=== PATIENT | female | born 1950 ===

== ENCOUNTER 2019-01-06 12:33 | Outpatient (REF) | payer OTHER, SELFPAY ==
[2019-01-06 19:32] LABS: HCT 40.6 % (36.0-46.0); HGB 13.9 g/dL (12.0-15.5); Mean Corp. HGB Concentration 34.2 g/dL (32.0-36.0); Mean Corpuscular Hemoglobin 34.7 pg (27.0-33.0); Mean Corpuscular Volume 101.2 fL (80-95); Mean Platelet Volume 10.9 fL (8.0-11.0); Platelet Count 206 x1000/uL (130-400); RBC 4.01 m/cumm (4.00-5.20); White Blood Cell Count 6.85 k/cumm (4.4-10.8)
[2019-01-06 20:02] LABS: ALT 22 U/L (12-78); LDL CHOLESTEROL 106 mg/dL (<100); TSH 1.55 uIU/mL (0.358-3.74)
== END 2019-01-06 12:53 ==
LOC: NCHCN 12:33
PROVIDERS: PCP Internal Medicine; Visit Provider Internal Medicine
DX: E78.5 Hyperlipidemia, unspecified (principal); R19.7 Diarrhea, unspecified; M54.5 Low back pain; B07.8 Other viral warts
CPT/HCPCS: 83721; 85027; 84443; 84460

== ENCOUNTER 2020-01-12 15:03 | Outpatient (REF) | payer OTHER, SELFPAY ==
[2020-01-12 19:46] LABS: ALT 25 U/L (14-59); Glucose 94 mg/dL (74-106); LDL CHOLESTEROL 109 mg/dL (<100)
== END 2020-01-12 15:23 ==
LOC: NCHCN 15:03
PROVIDERS: PCP Internal Medicine; Visit Provider Internal Medicine
DX: E78.5 Hyperlipidemia, unspecified (principal); M54.5 Low back pain
CPT/HCPCS: 82947; 83721; 84460

== ENCOUNTER 2020-07-05 20:41 | Outpatient (REF) | payer OTHER, SELFPAY ==
[2020-07-07 17:33] LABS: SARS-CoV-2 RNA Undetected (Undetected); SARS-CoV-2 Specimen Source Nasal
== END 2020-07-05 21:01 ==
LOC: NCHCN 20:41
PROVIDERS: PCP Internal Medicine; Visit Provider Internal Medicine
DX: Z11.59 Encounter for screening for other viral diseases (principal)
CPT/HCPCS: U0003

== ENCOUNTER 2021-01-13 12:41 | Outpatient (REF) | payer OTHER, SELFPAY ==
[2021-01-13 19:00] LABS: ALT 24 U/L (14-59); LDL CHOLESTEROL 106 mg/dL (<100); TSH 1.21 uIU/mL (0.36-3.74)
== END 2021-01-13 12:42 | disposition home or self-care (01) ==
LOC: NCHCN 12:41
PROVIDERS: PCP Internal Medicine; Visit Provider Internal Medicine
DX: E78.5 Hyperlipidemia, unspecified (principal); M85.80 Other specified disorders of bone density and structure, unspecified site; F51.04 Psychophysiologic insomnia
CPT/HCPCS: 83721; 84443; 84460

== ENCOUNTER 2022-01-19 18:04 | Outpatient (REF) | payer MEDICARE, SELFPAY ==
[2022-01-19 19:31] LABS: ALT 11 U/L (14-59); Calculated LDL 115 mg/dL (<100); Cholesterol 207 mg/dL (<200); HDL Cholesterol 66 mg/dL (40-60); Triglyceride 131 mg/dL (<150)
== END 2022-01-19 18:05 | disposition home or self-care (01) ==
LOC: NCHCN 18:04
PROVIDERS: PCP Internal Medicine; Visit Provider Internal Medicine
DX: E78.5 Hyperlipidemia, unspecified; B07.8 Other viral warts
CPT/HCPCS: 80061; 84460

== ENCOUNTER 2023-02-07 16:30 | Outpatient (REF) | payer MEDICARE, SELFPAY ==
[2023-02-07 20:27] LABS: ALT 19 U/L (14-59); Anion Gap 8.9 mmol/L (3-11); BUN 23 mg/dL (7-18); CO2 29.1 mmol/L (21.0-32.0); Calcium 9.2 mg/dL (8.5-10.1); Calculated LDL 91 mg/dL (<100); Chloride 106 mmol/L (98-107); Cholesterol 185 mg/dL (<200); Estimated GFR 60.23 (mL/min/1.73m2); Glucose 96 mg/dL (74-106); HDL Cholesterol 55 mg/dL (40-60); Potassium 3.9 mmol/L (3.5-5.1); Sodium 144 mmol/L (136-145); Triglyceride 195 mg/dL (<150)
[2023-02-07 20:47] LABS: Creatine Kinase 82 U/L (26-192)
== END 2023-02-07 16:31 | disposition home or self-care (01) ==
LOC: NCHCN 16:30
PROVIDERS: PCP Internal Medicine; Visit Provider Internal Medicine
DX: E78.5 Hyperlipidemia, unspecified (principal); Z00.00 Encounter for general adult medical examination without abnormal findings
CPT/HCPCS: 80048; 80061; 82550; 84460

== ENCOUNTER 2024-03-27 16:24 | Outpatient (REF) | payer MEDICARE, SELFPAY ==
[2024-03-27 20:16] LABS: ALT 22 U/L (14-59); Calculated LDL 108 mg/dL (<100); Cholesterol 197 mg/dL (<200); Creatine Kinase 47 U/L (26-192); Glucose 102 mg/dL (74-106); HDL Cholesterol 64 mg/dL (40-60); Triglyceride 128 mg/dL (<150)
== END 2024-03-27 16:25 | disposition home or self-care (01) ==
LOC: NCHCN 16:24
PROVIDERS: PCP Internal Medicine; Visit Provider Internal Medicine
DX: E78.5 Hyperlipidemia, unspecified (principal)
CPT/HCPCS: 80061; 82550; 82947; 84460

== ENCOUNTER 2024-06-02 21:28 | Outpatient (REF) | payer MEDICARE, SELFPAY ==
[2024-06-02 20:44] LABS: HCT 40.6 % (36.0-46.0); HGB 13.6 g/dL (11.2-15.7); MCH 34.4 pg (27.0-33.0); MCHC 33.5 % (32.0-36.0); MCV 103 fL (80-95); MPV 12.4 fL (8.0-11.0); Platelet Count 139 10^3/uL (130-400); RBC 3.95 10^6/uL (3.93-5.22); RDW 11.9 % (11.7-14.6)
[2024-06-02 21:08] LABS: INR 0.9 (0.9-1.1); Prothrombin Time 9.4 sec (9.1-11.1)
== END 2024-06-02 21:29 | disposition home or self-care (01) ==
LOC: NCHCN 21:28
PROVIDERS: PCP Internal Medicine; Visit Provider Internal Medicine
DX: N63.10 Unspecified lump in the right breast, unspecified quadrant (principal)
CPT/HCPCS: 85027; 85610